=== PATIENT | female | born 1970 | race African-American/Black ===

== ENCOUNTER 2022-09-17 04:23 | Day surgery (SDC) | payer OTHER ==
[2022-09-16 09:52] VITALS: BMI 26.7
[2022-09-17 12:01] VITALS: TEMP 98
[2022-09-17 12:02] VITALS: BP 123/61
[2022-09-17 12:04] VITALS: PULSE 71; RESP 12
== END 2022-09-17 12:00 | disposition home or self-care (01) ==
LOC: JASU-ENDO 04:23
PROVIDERS: ATTEND Internal Medicine Gastroenterology
PROC: 0DJD8ZZ Inspection of Lower Intestinal Tract, Via Natural or Artificial Opening Endoscopic (ICD-10-PCS; principal; 2022-09-17 10:15)
DX: Z12.11 Encounter for screening for malignant neoplasm of colon (principal); K64.8 Other hemorrhoids